=== PATIENT | female | born 1990 | race Caucasian/White ===

== ENCOUNTER 2021-04-23 13:58 | Emergency (ER) | payer BC ==
[2021-04-23 14:27] VITALS: TEMP 98.3
--- NOTE | 2021-04-23 15:47 | ED ---
URI HPI - General Chief Complaint: Upper Respiratory Infection Stated Complaint: Covid+,Wants antibody Time Seen by Provider: 04/23/21 15:24 Source: patient, RN notes reviewed Mode of arrival: ambulatory Limitations: no limitations - History of Present Illness Initial Comments: 30-year-old female presents emergency department with chief complaint of COVID- 19 positive. Patient states that she is here for multiple antibodies. Patient states that she tested positive at [facility]. Patient states that symptoms for last 5 days. Patient states her symptoms include cough congestion fever bodyaches generalized weakness. - Related Data Allergies Allergy/AdvReac Type Severity Reaction Status Date / Time cephalexin [From Keflex] Allergy Unknown Verified 04/23/21 14:27 Sulfa (Sulfonamide Allergy Unknown Verified 04/23/21 14:27 Antibiotics) Review of Systems ROS Statement: Those systems with pertinent positive or pertinent negative responses have been documented in the HPI. ROS Other: All systems not noted in ROS Statement are negative. Past Medical History Past Medical History: No Reported History History of Any Multi-Drug Resistant Organisms: None Reported Past Surgical History: Tonsillectomy Past Psychological History: No Psychological Hx Reported Smoking Status: Never smoker Past Alcohol Use History: Occasional Past Drug Use History: None Reported General Exam Limitations: no limitations General appearance: alert, in no apparent distress Head exam: Present: atraumatic, normocephalic, normal inspection Eye exam: Present: normal appearance, PERRL, EOMI. Absent: scleral icterus, conjunctival injection, periorbital swelling ENT exam: Present: normal exam, normal oropharynx, mucous membranes moist Neck exam: Present: normal inspection, full ROM. Absent: tenderness, meningismus, lymphadenopathy Respiratory exam: Present: normal lung sounds bilaterally. Absent: respiratory distress, wheezes, rales, rhonchi, stridor Cardiovascular Exam: Present: regular rate, normal rhythm, normal heart sounds. Absent: systolic murmur, diastolic murmur, rubs, gallop, clicks Course Vital Signs 04/23/21 14:23 Temperature 98.3 F Pulse Rate 104 H Respiratory 22 Rate Blood Pressure 139/95 O2 Sat by Pulse 97 Oximetry Medical Decision Making - Medical Decision Making Patient did receive monoclonal antibodies will be discharged in stable condition return parameters were discussed. Vitals reviewed and are stable. - Lab Data Lab Results 04/23/21 Range/Units 14:29 Coronavirus (PCR) Detected A (Not Detectd) Disposition Clinical Impression: COVID-19 Disposition: HOME SELF-CARE Condition: Stable Instructions (If sedation given, give patient instructions): Coronavirus Disease 2019 (COVID-19) Additional Instructions: Please return to the Emergency Department if symptoms worsen or any other concerns. Is patient prescribed a controlled substance at d/c from ED?: No Referrals: Josh Carranza MD [Primary Care Provider] - 1-2 days Time of Disposition: 15:47
[2021-04-23] MEDS ORDERED: CASIRIVIMAB (REGN10933) (EUA) 600 MG, IMDEVIMAB (REGN10987) (EUA) 600 MG in SODIUM CHLO... IVPB ONE (16:30)
[2021-04-23] MEDS ORDERED: SODIUM CHLORIDE 0.9% 50 ML IVPB ONE (17:00)
[2021-04-23 18:23] VITALS: BP 136/78; PULSE 80; RESP 18
== END 2021-04-23 18:23 | disposition home or self-care (01) ==
LOC: EC 13:58
DX: U07.1 COVID-19 (principal); Z88.1 Allergy status to other antibiotic agents; Z88.2 Allergy status to sulfonamides
CPT/HCPCS: 87635; 99283; Q0244

== ENCOUNTER 2021-04-29 17:34 | Emergency (ER) | payer BC ==
[2021-04-29 17:52] VITALS: RESP 18; TEMP 98
--- NOTE | 2021-04-29 18:25 | XR ---
EXAMINATION TYPE: XR chest 2V DATE OF EXAM: 04/29/2021 COMPARISON: NONE HISTORY: Cough TECHNIQUE: Frontal and lateral views of the chest are obtained. FINDINGS: There is mild perihilar hazy opacity. No pleural effusion, or pneumothorax seen. The card iac silhouette size is within normal limits. The osseous structures are intact. IMPRESSION: Mild perihilar opacity may represent atelectasis. Developing infiltrates cannot be entir quinton excluded.
[2021-04-29] MEDS ORDERED: DEXAMETHASONE SOD PHOSPHATE 10 MG/ML 1 ML VIAL IM STA (19:41)
[2021-04-29] MEDS ORDERED: FAMOTIDINE 20 MG TAB PO STA (19:42)
--- NOTE | 2021-04-29 19:45 | ED ---
URI HPI - General Source: patient, RN notes reviewed Mode of arrival: ambulatory Limitations: no limitations <Roland Farnsworth - Last Filed: 04/29/21 19:45> <Shanda Gillespie - Last Filed: 05/01/21 12:31> - General Chief Complaint: Upper Respiratory Infection Stated Complaint: covid+, increased SOB Time Seen by Provider: 04/29/21 19:32 - History of Present Illness Initial Comments: This is a pleasant 30-year-old female who presents to the emergency department complaining of continued shortness of breath secondary to COVID-19. Patient states she started getting sick last week and was treated with antibiotics for a sinus infection. Patient then was called and told she had COVID-19. Patient came in here on April 23 and was given the monoclonal antibody infusion. Patient states that she is still having symptoms and feels like she is still short of breath. Patient also complaining of some intermittent heartburn-type symptoms. No headache, no fever or chills, no changes in vision or hearing, no sore throat or difficulty with speech, no neck pain, , no abdominal pain, no nausea or vomiting, no changes in urination or bowel movements, no numbness or tingling, no extremity pain, no skin rashes or lesions. Vision denies any pleuritic chest pain. No peripheral edema. Continued body aches. Continued fatigue. (Roland Farnsworth) - Related Data Previous Rx's Medication Instructions Recorded Famotidine [Pepcid] 20 mg PO BID #30 tablet 04/29/21 Allergies Allergy/AdvReac Type Severity Reaction Status Date / Time cephalexin [From Keflex] Allergy Unknown Verified 04/29/21 17:49 Sulfa (Sulfonamide Allergy Unknown Verified 04/29/21 17:49 Antibiotics) Review of Systems ROS Other: All systems not noted in ROS Statement are negative. <Roland Farnsworth - Last Filed: 04/29/21 19:45> ROS Other: All systems not noted in ROS Statement are negative. <Shanda Gillespie - Last Filed: 05/01/21 12:31> ROS Statement: Those systems with pertinent positive or pertinent negative responses have been documented in the HPI. Past Medical History Past Medical History: No Reported History History of Any Multi-Drug Resistant Organisms: None Reported Past Surgical History: Tonsillectomy Past Psychological History: No Psychological Hx Reported Smoking Status: Never smoker Past Alcohol Use History: Occasional Past Drug Use History: None Reported <Roland Farnsworth - Last Filed: 04/29/21 19:45> General Exam Limitations: no limitations General appearance: alert, in no apparent distress Head exam: Present: atraumatic, normocephalic, normal inspection Eye exam: Present: normal appearance, PERRL, EOMI. Absent: scleral icterus, conjunctival injection, periorbital swelling ENT exam: Present: normal exam, mucous membranes moist Neck exam: Present: normal inspection. Absent: tenderness, meningismus, lymphadenopathy Respiratory exam: Present: normal lung sounds bilaterally. Absent: respiratory distress, wheezes, rales, rhonchi, stridor Cardiovascular Exam: Present: regular rate, normal rhythm, normal heart sounds. Absent: systolic murmur, diastolic murmur, rubs, gallop, clicks GI/Abdominal exam: Present: soft, normal bowel sounds. Absent: distended, tenderness, guarding, rebound, rigid Extremities exam: Present: normal inspection, full ROM, normal capillary refill. Absent: tenderness, pedal edema, joint swelling, calf tenderness Back exam: Present: normal inspection Neurological exam: Present: alert, oriented X3, CN II-XII intact Psychiatric exam: Present: normal affect, normal mood Skin exam: Present: warm, dry, intact, normal color. Absent: rash <Roland Farnsworth - Last Filed: 04/29/21 19:45> - General Exam Comments Initial Comments: 30-year-old female presents in no significant distress. Vital signs stable, patient afebrile. No respiratory distress. No tachypnea. SpO2 on room air is 100%. (Roland Farnsworth) Course Vital Signs 04/29/21 04/29/21 04/29/21 17:49 20:21 20:22 Temperature 98 F Pulse Rate 66 93 Respiratory 18 18 18 Rate Blood Pressure 138/89 131/97 O2 Sat by Pulse 100 100 Oximetry Medical Decision Making <Roland Farnsworth - Last Filed: 04/29/21 19:45> <Shanda Gillespie - Last Filed: 05/01/21 12:31> - Medical Decision Making Patient's vital signs are stable, patient in no significant distress. Dry cough noted throughout the course of the illness. I believe the patient symptomology is related entirely to the COVID-19 infection. Discussed the case in detail with the patient. Patient asking for medicines to help alleviate the symptomology. I did agree to give the patient an injection of dexamethasone. Patient states she also gets intermittent heartburn. Requesting medication for that. Prescription written for Pepcid. Patient is Perc 0. Has no pleuritic pain. Patient's presentation symptomology consistent with cardiac disease or pulmonary embolism. The case was discussed in detail with ED attending physician. Presentation, findings, treatment plan discussed in detail. Patient was told to return to the ER for any signs or symptoms worsen. Told to return immediately if any other problems arise. All questions answered. Treatment plan discussed. Patient in agreement (Roland Farnsworth) I was available for consultation in the emergency department. The history and physical exam were done by the midlevel provider. I was consulted for this patients care. I reviewed the case with the midlevel provider and based on t heir presentation of the patient, I agree with the assessment, medical decision making and plan of care as documented. Chart was dictated using [employer] dictation software. Attempts were made to corre ct any dictation errors however some typographical errors may persist. Patient was seen during a national state of emergency due to the Covid-19 pandemic. (Shanda Gillespie) Disposition Is patient prescribed a controlled substance at d/c from ED?: No Time of Disposition: 19:43 <Roland Farnsworth - Last Filed: 04/29/21 19:45> <Shanda Gillespie - Last Filed: 05/01/21 12:31> Clinical Impression: COVID-19 Disposition: HOME SELF-CARE Condition: Good Instructions (If sedation given, give patient instructions): Coronavirus Disease 2019 (COVID-19) Additional Instructions: SELF QUARANTINE DISCHARGE: As you are at risk for symptoms due to coronavirus, please stay home and stay away from others as much as possible. Please maintain social distance of 6 feet if possible. You should not return to work until at least 3 days (72 hours) have passed since recovery of symptoms. This defined as resolution of fever without the use of fever reducing medicines and improvement in respiratory symptoms (e.g,, cough, shortness of breath) and, At least 5 days have passed since symptoms first appeared. More information about what to do if you are sick can be found on the CDC we bsite at https://www.cdc.gov/coronavirus/2019-ncov/rc-mug-ium-sick/ukapk-dfii-ognm.html Expect the symptoms to last for 7-14 days from onset. Use acetaminophen (Tylenol) as needed for discomfort. You can take a maximum of 1 gram every 6 hours for discomfort, with your total dose in 24 hours not exceeding 4 grams. Be sure to maintain hydration. Drink continuous water and/or items high in vi tamin C, such as orange juice and/or lemonade. Unless you have high blood pressure, you may consider Sudafed (which is [id number]) for nasal congestion. I would suggest that a short acting [place] dafed rather than the 24 hour Sudafed. For a cough you may take Mucinex or Robitussin. Also consider the use of Vicks Vapor Rub or your chest when you sleep. Use a humidifier that is cleaned frequently, in the bedroom at night. For Nausea /Vomiting/Diarrhea associated with your Illness: o Small frequent sips of room temperature liquids. o Diet: [employer] - If you are still experiencing discomfort and/or nausea please slowly advancing your diet using the BRAT Diet = bananas, rice, apples/apple sauce, toast. o With diarrhea avoid any dairy for 48 hours after symptoms resolved. o Continue with activity as tolerated. If your symptoms do get worse and you believe that the upper respiratory infection has developed into something else, such as pneumonia or severe de hydration, please return to the emergency department or follow-up with your primary care. But expect to be symptomatic for the days as indicated above Prescriptions: Famotidine [Pepcid] 20 mg PO BID #30 tablet Referrals: Josh Carranza MD [Primary Care Provider] - 05/01/21
[2021-04-29 20:23] VITALS: BP 131/97; PULSE 93
== END 2021-04-29 20:23 | disposition home or self-care (01) ==
LOC: EC 17:34
DX: U07.1 COVID-19 (principal); Z88.1 Allergy status to other antibiotic agents; Z88.2 Allergy status to sulfonamides
CPT/HCPCS: 99284; 96372; 71046; J1100